=== PATIENT | male | born 1975 ===

== ENCOUNTER 2024-03-17 00:55 | Outpatient (CLI) | payer OTHER, SELFPAY ==
--- OUTSIDE RECORDS SUMMARY | 2024-03-19 08:39 | XMS_ITS | Clinical Summary ---
Author Organization [facility] Address [address] [place] [address] Care Team Providers Care Help Desk Technician Name Role Phone Roberto Langston Primary Care Provider [phone] Source Comments This disclosure is being made pursuant to the [employer] program and maynot contain all information available regarding this patient.[facility] Allergies No known active allergies Medications Medication [...] Comments Blood Pressure 120/68 09/18/2022 10:26 AM RAG SORTER [employer] CUTTER Pulse 89 09/18/2022 10:26 AM R[employer]TER [employer] CUTTER Temperature 36.4 ??C (97.5 ??F) 09/18/2022 10:[address] Respiratory Rate 18 09/18/2022 10:26 AM R[employer]TER [employer] C[employer]TER Oxygen Saturation 98% 08/25/2022 8:25 AM RAG [employer]TER AND CUTTER Inhaled Oxygen Concentration - - Weight 71.2 kg (157 lb) 09/18/2022 10:26 AM RAG [employer]TER AND CUTTER Height 180.3 cm (5' 11) 09/18/2022 10:26 AM RAG [employer]ORTER [employer] CUTTER Body Mass Index 21.9 09/18/2022 10:26 AM R[employer]TER [employer] CUTTER Plan of Treatment Health Maintenance Due Date [...] RNA, QUANTITATIVE, PCR Routine 08/25/2022 9:06 AM RAG S[employer]TER AND CUTTER Acute hepatitis C virus infection without hepatic coma from Last 3 Months or Most Recently Relevant to Health Maintenance Results * Hepatitis C RNA, quantitative, PCR (08/25/2022 9:06 AM RAG [employer]TER [employer] CUTTER) Hep C Virus RNA UNDETECTED UNDET [IU]/mL 08/27/2022 11:07 AM R[employer]TER [employer] CUTTER Pathology Laboratory Log 10 HCV RNA HCV RNA is not detected UNDETM [IU]/mL 08/27/2022 11:07 AM RAG [employer]TER [employer] CUTTER Pathology Laboratory Comment: The quantification range of this assay is 15 to 100,000,000 [IU]/mL (1.18 log [IU]/mL to 8.00 log [IU]/mL). Testing was performed using the quincy HCV test ([employer] with the [employer] system. Performed at [facility], [address] [place] [id number] Blood BLOOD SPECIMEN / Unknown 08/25/2022 9:06 AM [employer] C[employer]TER 08/25/2022 9:07 AM RAG S[employer]TER [employer] CUTTER Reggie Collins [facility] BLOOD ORDERABL ES [facility] [address] [facility]. [place], [place] [phone] Pathology Laboratory [address] [facility] [place] [address] from Last 3 Months or Most Recently Relevant to Health Maintenance Care Teams Help Desk Technician Relationship Specialty Start Date End Date Roberto Langston PA [address] [place], [place] [phone] PCP - General 08/25/22
== END 2024-03-17 00:56 | disposition home or self-care (01) ==
LOC: AMB 03-19 08:38
PROVIDERS: Visit Provider Internal Medicine
DX: S29.9XXA Unspecified injury of thorax, initial encounter (principal); V49.00XA Driver injured in collision with unspecified motor vehicles in nontraffic accident, initial encounter; Y92.410 Unspecified street and highway as the place of occurrence of the external cause
CPT/HCPCS: A0425; A0427

== ENCOUNTER 2024-03-17 01:34 | Emergency (ER) | payer OTHER, SELFPAY ==
[2024-03-17] VITALS (14 sets, daily range): BP systolic 120–137; BP diastolic 79–96; PULSE 95–112; RESP 16; TEMP 36.9; O2SAT 94–98; BMI 23.7
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
[2024-03-17 01:49] LABS: Basophils Absolute Auto 0.04 K/uL (0.00-0.30); Basophils Percent Auto 0.5 % (0.0-3.0); Eosinophils Absolute Auto 0.25 K/uL (0.00-0.50); Eosinophils Percent Auto 3.4 % (0.0-7.0); Hematocrit 44.4 % (37.0-53.0); Hemoglobin* 14.5 gm/dL (13.5-17.5); Immature Granulocytes Abs Auto 0.02 K/uL (0.00-0.30); Immature Granulocytes Pct Auto 0.3 %; Lymphocytes Percent Auto 22.8 % (20-44); Mean Corpuscular HGB Conc 33 gm/dL (32-36); Mean Corpuscular Hemoglobin 29 pg (26-34); Mean Corpuscular Volume 90 fL (80-100); Neutrophils Absolute Auto 4.78 K/uL (1.7-7.0); Platelet Count* 326 K/uL (140-440); RDW Coefficient of Variation % 12.9 % (11.5-15.5); Red Blood Count 4.96 m/uL (4.30-5.90); White Blood Count* 7.46 K/uL (4.50-11.00)
[2024-03-17 01:51] LABS: Slide Review Reflex No
[2024-03-17 02:01] LABS: Albumin* 4.5 g/dL (3.3-5.0); Chloride* 106 mmol/L (96-114)
[2024-03-17 02:02] LABS: Potassium* 3.8 mmol/L (3.6-5.1); Sodium* 139 mmol/L (135-149)
[2024-03-17 02:04] LABS: Alkaline Phosphatase* 133 U/L (40-150); Anion Gap 7 mEq/L (7-15); Aspartate Amino Transferase* 33 U/L (12-35); Bilirubin Total* 0.4 mg/dL (0.1-1.5); Carbon Dioxide* 26 mmol/L (20-32); Creatinine* 1.1 mg/dL (0.5-1.5); Est. Creatinine Clearance* 86.64; Estimated Glomerular Filt Rate 84 ml/min; Total Protein* 7.5 g/dL (6.0-8.3)
[2024-03-17 02:05] LABS: Alanine Aminotransferase* 15 U/L (4-50); Blood Urea Nitrogen* 16 mg/dL (5-24); Calcium* 9.8 mg/dL (8.4-10.6); Glucose* 152 mg/dL (60-115)
[2024-03-17 02:06] LABS: Ethanol* < 0.01 % (0.01-0.03)
--- OUTSIDE RECORDS SUMMARY | 2024-03-17 02:17 | XMS_ITS | Clinical Summary ---
Author Organization [facility] Address [address] [place] [address] Care Team Providers Care Food Service Counter Clerk Name Role Phone Roberto Langston Primary Care Provider [phone] Source Comments This disclosure is being made pursuant to the [employer] program and maynot contain all information available regarding this patient.[facility] Allergies No known active allergies Medications Medication Sig Dispensed Refills Start Date End Date Status naproxen (NAPROSYN) 500 MG tablet Take 1 (one) tablet by mouth 2 (two) times daily with meals. 28 tablet 09/18/2022 Active Active Problems No known active problems Family History Medical History Relation Name Comments No Known Problems Father No Known Problems Mother Colon cancer Neg Hx Liver cancer Neg Hx Liver disease Neg Hx Relation Name Status Comments Father Mother Social History Tobacco Use Types Packs/Day Years Used Date Smoking Tobacco: Every Day Cigarettes Smokeless Tobacco: Never Tobacco Cessation:Ready to Q uit: No; Counseling Given: Yes Alcohol Use Standard Drinks/Week Comments Yes 0 (1 standard drink = 0.6 oz pur e alcohol) occasionally AUDIT-C Answer Date Recorded Q1: How often do you have a drink containing alc ohol? 2-3 times a week 08/25/2022 Q2: How many drinks containi ng alcohol do you have on a typical day when you are drinking? 5 or 6 08/25/2022 Q3: How often do you have si x or more drinks on one occasion? Weekly 08/25/2022 PHQ-2 Answer Date Recorded PHQ-2 Total Score 2 08/25/2022 Sex and Gender Information Value Date Recorded Sex Assigned at Not on file Gender Identity Not on file Sexual Orientation Not on file Job Start Date Occupation Industry Not on file Not on file Not on file Last Filed Vital Signs Vital Sign Reading Time Taken Comments Blood Pressure 120/68 09/18/2022 10:26 AM SIGNALS INTELLIGENCE ANALYSIS MANAGER Pulse 89 09/18/2022 10:26 AM SIGNALS INTELLIGENCE ANALYSIS MANAGER Temperature 36.4 ??C (97.5 ??F) 09/18/2022 10:[address] Respiratory Rate 18 09/18/2022 10:26 AM SIGNALS INTELLIGENCE ANALYSIS MANAGER Oxygen Saturation 98% 08/25/2022 8:25 AM SIGNALS INTELLIGENCE ANALYSIS MANAGER Inhaled Oxygen Concentration - - Weight 71.2 kg (157 lb) 09/18/2022 10:26 AM SIGNALS INTELLIGENCE ANALYSIS MANAGER Height 180.3 cm (5' 11) 09/18/2022 10:26 AM SIGNALS INTELLIGENCE ANALYSIS MANAGER Body Mass Index 21.9 09/18/2022 10:26 AM SIGNALS INTELLIGENCE ANALYSIS MANAGER Plan of Treatment Health Maintenance Due Date Last Done Comments CT Colonography 1977 Colonoscopy 1977 Colorectal Cancer Screening 1977 Fecal DNA Test 1977 Lab-Cholesterol Screening 1977 Sigmoidoscopy 1977 Pneumococcal Vaccines 0-64 y o (1 of 2 - PCV) 1983 Annual Wellness Visit 1995 Hepatitis B Vaccine (1 of 3 - 19+ 3-dose series) 1996 Tetanus/Pertussis Vaccine Teen/Adult (1 - Tdap) 1996 FOBT/FIT 1997 COVID-19 Vaccine (3 - 2022-2 4 season) 2023 11/14/2021, 10/15/2021 Influenza Vaccine (#1) 2024 Zoster (Shingles) Vaccine 50 + (1 of 2) 2027 Lab-Hepatitis C Screening Completed 08/25/2022 HIB Vaccine Aged Out No longer eligi ble based on patient's age to complete this topic HPV Vaccine (F:9-26YO,M: 9-22) Aged Out No longer eligible based on patient's age to complete this topic Hepatitis A Vaccine Aged Out No longe r eligible based on patient's age to complete this topic IPV Vaccine Aged Out No longer eligi ble based on patient's age to complete this topic Meningococcal Conjugate Vaccine Aged Out No longer eligible b ased on patient's age to complete this topic RSV < 20 Months Aged Out No longer el igible based on patient's age to complete this topic Procedures Procedure Name Priority Date/Time Associated Diagnosis Comments HEPATITIS C RNA, QUANTITATIVE, PCR Routine 08/25/2022 9:06 AM SIGNALS INTELLIGENCE ANALYSIS MANAGER Acute hepatitis C virus infection without hepatic coma from Last 3 Months or Most Recently Relevant to Health Maintenance Results * Hepatitis C RNA, quantitative, PCR (08/25/2022 9:06 AM SIGNALS INTELLIGENCE ANALYSIS MANAGER) Hep C Virus RNA UNDETECTED UNDET [IU]/mL 08/27/2022 11:07 AM SIGNALS INTELLIGENCE ANALYSIS MANAGER Pathology Laboratory Log 10 HCV RNA HCV RNA is not detected UNDETM [IU]/mL 08/27/2022 11:07 AM SIGNALS INTELLIGENCE ANALYSIS MANAGER [facility] Comment: The quantification range of this assay is 15 to 100,000,000 [IU]/mL (1.18 log [IU]/mL to 8.00 log [IU]/mL). Testing was performed using the quincy HCV test ([employer] with the [employer] system. Performed at [facility], [address] [place] [id number] Blood BLOOD SPECIMEN / Unknown 08/25/2022 9:06 AM SIGNALS INTELLIGENCE ANALYSIS MANAGER 08/25/2022 9:07 AM SIGNALS INTELLIGENCE ANALYSIS MANAGER Reggie Collins [facility] LAB BLOOD ORDERABL ES [facility] [address] [facility], [place] [phone] Pathology Laboratory [address] [facility] [place] [address] from Last 3 Months or Most Recently Relevant to Health Maintenance Care Teams Food Service Counter Clerk Relationship Specialty Start Date End Date Roberto Langston PA [address] [place], [place] [id number] PCP - General 08/25/22
--- NOTE | 2024-03-17 02:28 | PC.NURSE ---
at BS. Pt remains somulent
--- NOTE | 2024-03-17 02:37 | PC.NURSE ---
SO at BS
== END 2024-03-17 03:16 | disposition home or self-care (01) ==
PROVIDERS: Emergency Provider Internal Medicine
DX: S50.812A Abrasion of left forearm, initial encounter (principal); S50.811A Abrasion of right forearm, initial encounter; V49.3XXA Car occupant (driver) (passenger) injured in unspecified nontraffic accident, initial encounter
CPT/HCPCS: 36415; 70450; 71250; 72125; 74176; 80053; 81003; 82077; 85025; 93005; 99283; 99284; 99291; G0390